=== PATIENT | female | born 1975 | race Caucasian/White ===

== ENCOUNTER 2024-12-14 14:24 | Inpatient (IN) | payer OTHER ==
[2024-12-14 15:02] VITALS: BMI 35.2
[2024-12-14] MEDS ORDERED: BENZONATATE 200 MG CAPSULE PO PRN (15:39)
[2024-12-14] MEDS ORDERED: BENZOCAINE/MENTHOL (CHLORASEPTIC ) LOZENGE MM PRN (15:39)
[2024-12-14] MEDS ORDERED: MAG HYDROX/AL HYDROX/SIMETH 30 ML UNIT-DOSE CUP PO PRN (15:39)
[2024-12-14] MEDS ORDERED: NALOXONE (NARCAN) HCL 4 MG/0.1 ML SPRAY NS PRN (15:39)
[2024-12-14] MEDS ORDERED: IBUPROFEN 400 MG TABLET (FP) PO PRN (15:39)
[2024-12-14] MEDS ORDERED: diazePAM 5 MG TABLET PO PRN (15:39)
[2024-12-14] MEDS ORDERED: LOPERAMIDE HCL 2 MG CAPSULE PO PRN (15:39)
[2024-12-14] MEDS ORDERED: ACETAMINOPHEN 325 MG TABLET (FP) PO PRN (15:39)
[2024-12-14] MEDS ORDERED: DICYCLOMINE HCL 10 MG CAPSULE PO PRN (15:39)
[2024-12-14] MEDS ORDERED: ONDANSETRON *ODT* 4 MG TABLET SL PRN (15:39)
[2024-12-14] MEDS ORDERED: BISMUTH SUBSALICYLATE 524 MG/30 ML PO PRN (15:39)
[2024-12-14] MEDS ORDERED: IBUPROFEN 600 MG TABLET (FP) PO PRN (15:39)
[2024-12-14] MEDS ORDERED: POLYETHYLENE GLYCOL (HEALTHYLAX) 3350 17 GM PACKET PO PRN (15:39)
[2024-12-14] MEDS ORDERED: MAGNESIUM HYDROX 2400MG/30ML ORAL SUSPENSION 30 ML CUP PO PRN (15:39)
[2024-12-14] MEDS: diazePAM 5 MG TABLET PO ONE (20:35)
[2024-12-14] MEDS ORDERED: ONDANSETRON *ODT* 4 MG TABLET ONE (20:39)
[2024-12-14] MEDS ORDERED: diazePAM 5 MG TABLET ONE (20:39)
[2024-12-14] MEDS: diazePAM 5 MG TABLET PO SCH (20:44)
[2024-12-14] MEDS: ONDANSETRON *ODT* 4 MG TABLET SL ONE (20:44)
[2024-12-14] MEDS: PRENATAL VITAMINS W/ FOLIC ACID TABLET (FP) PO SCH (20:46)
[2024-12-14] MEDS: MELATONIN 5 MG TABLETS PO SCH (22:40)
[2024-12-14] MEDS: THIAMINE 100 MG TABLET PO SCH (22:40)
[2024-12-15] MEDS: hydrOXYzine PAMOATE 25 MG CAPSULE (FP) PO PRN (06:06)
[2024-12-15 09:44] LABS: HEMATOCRIT 34.4 % (34.1-44.9); HEMOGLOBIN 10.7 g/dL (11.2-15.7); MCHC 31.1 g/dl (32.2-35.5); MEAN CELL VOLUME 88.7 fl (79.4-94.8); PLATELET COUNT 286 x10^3/uL (182-369); RDW 15.9 % (12.2-17.1)
[2024-12-15 09:45] LABS: CHLORIDE 104 mmol/L (98-107); POTASSIUM 3.9 mmol/L (3.5-5.1); SODIUM 135 mmol/L (136-145)
[2024-12-15 09:49] LABS: ALBUMIN 3.6 g/dl (3.4-5.0); ANION GAP 8 mmol/L (4-13); BLOOD UREA NITROGEN 3.9 mg/dL (7-18); CALCIUM 9.2 mg/dL (8.5-10.1); CO2 23 mmol/L (21-32)
[2024-12-15 09:50] LABS: GLUCOSE,RANDOM 111 mg/dL (74-106); SGPT/ALT 28 U/L (13-61)
[2024-12-15 09:51] LABS: BILIRUBIN,TOTAL 0.6 mg/dL (0.2-1)
[2024-12-15 09:52] LABS: ALK PHOS 91 U/L (45-117); CREATININE 0.5 mg/dL (0.55-1.3); SGOT/AST 41 U/L (15-37)
[2024-12-15 16:31] VITALS: RESP 18
[2024-12-15] MEDS: guaiFENesin 600 MG TABLET.ER (FP) PO PRN (19:56)
[2024-12-15 21:01] VITALS: TEMP 97.9
[2024-12-15] MEDS: METHOCARBAMOL 500 MG TABLET PO PRN (22:17)
[2024-12-15] MEDS: traZODone HCL 50 MG TABLET (FP) PO SCH (22:17)
[2024-12-16] MEDS: diazePAM 5 MG TABLET PO SCH (05:53)
[2024-12-16 08:44] VITALS: BP 112/71; PULSE 83
[2024-12-17] MEDS ORDERED: diazePAM 5 MG TABLET PO SCH (06:00)
[2024-12-18] MEDS ORDERED: diazePAM 5 MG TABLET PO ONE (06:00)
== END 2024-12-16 11:00 | disposition home or self-care (01) | DRG 775 ==
LOC: YASAS 14:24 → Y6N 20:15
PROVIDERS: ADMIT Allergy & Immunology; ATTEND Allergy & Immunology
PROC: HZ2ZZZZ Detoxification Services for Substance Abuse Treatment (ICD-10-PCS; principal; 2024-12-14)
DX: F10.230 Alcohol dependence with withdrawal, uncomplicated (principal); F19.282 Other psychoactive substance dependence with psychoactive substance-induced sleep disorder; F19.280 Other psychoactive substance dependence with psychoactive substance-induced anxiety disorder; F19.24 Other psychoactive substance dependence with psychoactive substance-induced mood disorder
CPT/HCPCS: 36415; 80053; 80305; 80307; 81025; 85027; 86780; 93005; 93010; Q0162